=== PATIENT | female | born 1965 | race Caucasian/White ===

== ENCOUNTER 2017-08-20 14:25 | Outpatient (CLI) | payer BC | END 2017-08-20 14:26 | disposition home or self-care (01) | LOC: BICMAMMO 14:25 | PROVIDERS: ATTEND Family Medicine | DX: Z13.820 Encounter for screening for osteoporosis (principal) | CPT/HCPCS: 77080 ==

== ENCOUNTER 2018-07-14 12:11 | Outpatient (CLI) | payer BC ==
--- NOTE | 2018-07-14 13:04 | ULT ---
US Renal Bilateral STANDARD HISTORY: Acute renal failure COMPARISON: None. FINDINGS: The right kidney measures 10.3 cm in length and the left kidney measures 10.8 cm in length. No focal mass or hydronephrosis is seen on either side. Cortical echogenicity and thickness is normal. The bladder is unremarkable. IMPRESSION: Normal exam.
== END 2018-07-14 12:12 | disposition home or self-care (01) ==
LOC: BICULT 12:11
PROVIDERS: ATTEND Internal Medicine Nephrology
DX: N17.9 Acute kidney failure, unspecified (principal)
CPT/HCPCS: 76770

== ENCOUNTER 2019-07-11 15:30 | Outpatient (CLI) | payer BC | END 2019-07-11 15:31 | disposition home or self-care (01) | LOC: DTY/OP 15:30 | PROVIDERS: ATTEND Specialist | DX: Z01.818 Encounter for other preprocedural examination (principal); E66.01 Morbid (severe) obesity due to excess calories | CPT/HCPCS: 97802 ==

== ENCOUNTER 2019-08-18 11:30 | Inpatient (IN) | payer BC, OTHER ==
[2019-08-24] MEDS ORDERED: Ketorolac Tromethamine 30 MG/ML VIAL ONE (06:17)
[2019-08-24] MEDS ORDERED: Scopolamine 1.5 mg/72 hour Patch ONE (06:17)
[2019-08-24] MEDS ORDERED: Bupivacaine 0.25% HCL 30 ML VIAL ONE (06:42)
[2019-08-24] MEDS ORDERED: Lidocaine 1% w/Epinephrine 1:100K 20 ML VIAL ONE (06:42)
[2019-08-24] MEDS ORDERED: Fentanyl 100 MCG/2 ML VIAL ONE ×3 (06:59→09:11)
[2019-08-24] MEDS ORDERED: Midazolam HCl 2 mg/2 ml Vial ONE ×2 (06:59→07:17)
[2019-08-24] MEDS ORDERED: SUGAMMADEX SODIUM 200 MG/2 ML VIAL ONE ×2 (08:18→08:36)
[2019-08-24] MEDS ORDERED: Promethazine HCl 25 MG/ML VIAL IM PRN ×2 (08:59→10:37)
[2019-08-24] MEDS ORDERED: Ondansetron HCl/PF 4 MG/2 ML Vial IVP PRN (08:59)
[2019-08-24] MEDS ORDERED: Promethazine HCl 25 MG/ML VIAL SLOW IVP PRN (08:59)
[2019-08-24] MEDS ORDERED: Morphine 4 MG/ML VIAL SLOW IVP PRN (10:37)
[2019-08-24] MEDS ORDERED: diphenhydrAMINE 50 MG/ML VIAL IVP PRN (10:37)
[2019-08-24] MEDS ORDERED: Dextrose 50% Abboject 50 ML SYRINGE SLOW IVP PRN (10:37)
[2019-08-24] MEDS ORDERED: hydrALAZINE 20 MG/ML VIAL SLOW IVP PRN (10:37)
[2019-08-24] MEDS ORDERED: Pantoprazole 40 MG VIAL IVP SCH ×2 (10:37→11:00)
[2019-08-24] MEDS ORDERED: Dextrose 5% in Water 1,000 ML IV PRN (10:37)
[2019-08-24] MEDS ORDERED: Hydrocodone-Acetamin 15 ML UDCUP PO PRN (10:37)
[2019-08-24 11:44] VITALS: BMI 41.9
[2019-08-24] MEDS ORDERED: Ketorolac Tromethamine 30 MG/ML VIAL IVP SCH (12:00)
[2019-08-24] MEDS ORDERED: PROPOFOL 200 MG/20 ML VIAL ONE (13:16)
[2019-08-24] MEDS ORDERED: Lidocaine 1% PF 5 ML VIAL ONE (13:16)
[2019-08-24] MEDS ORDERED: Ondansetron PF 4 MG/2 ML Vial ONE (13:16)
[2019-08-24] MEDS ORDERED: Glycopyrrolate 0.2 MG/ML 5 ML SYRINGE ONE (13:16)
[2019-08-24] MEDS ORDERED: Rocuronium Bromide 10 MG/ML (10ML VIAL) ONE (13:16)
[2019-08-24] MEDS: D5 1/2 NS w/20 mEq KCL 1,000 ML IV SCH ×3 (13:44→23:05)
--- NOTE | 2019-08-24 17:00 | OP ---
DATE OF PROCEDURE: 08/24/2019 PREOPERATIVE DIAGNOSIS: Morbid obesity. POSTOPERATIVE DIAGNOSIS: Morbid obesity. PROCEDURE PERFORMED: Laparoscopic vertical sleeve gastrectomy using the ViSiGi device. ANESTHESIA: General endotracheal. INDICATIONS: The patient is a 54-year-old white female. She has undergone preoperative evaluation and education, presents at this time for sleeve gastrectomy. DESCRIPTION OF OPERATION: Informed consent was obtained. The patient was taken to the operating room where general endotracheal anesthesia was obtained with the patient in supine position. Abdomen was prepped with ChloraPrep and draped in sterile fashion. Local anesthetic was infiltrated and 5 mm supraumbilical incision was created through which Veress needle was passed to the peritoneal cavity and pneumoperitoneum established using carbon dioxide up to a pressure of 15 mmHg. A 5 mm trocar port was passed through this same incision. Laparoscopic camera was passed through this port. Under direct vision, 4 additional ports were placed including bilateral 5 mm subcostal ports, a 12 mm right paramedian port and a 15 mm left paramedian port. A 5 mm epigastric incision was created through which Nathansen retractor was passed into the abdominal cavity and used to retract the left lobe of the liver. The patient was placed into reverse Trendelenburg position. The ViSiGi device was advanced within the stomach and used to decompress this. The pylorus was identified and beginning 4 cm proximal to the pylorus, the omentum and vascular tissue along the greater curvature was divided using the LigaSure in an ascending fashion up to the angle of His. All posterior adhesions were mobilized. The short gastric vessels were carefully divided and then hemostasis was maintained using the LigaSure. Once this was completely mobilized, the ViSiGi was carefully positioned at the level of the pylorus and placed to suction, which was clearly defining the lesser curvature of the stomach. The gastrectomy was then performed using a series of fires of the [place] stapler using a green load followed by a gold load and a series of blue loads until completion of the gastrectomy. The ViSiGi along the lesser curvature was used as a size 36 bougie to guide in the gastric division. Care was taken to avoid narrowing the incisura or the gastroesophageal junction. The integrity of the staple line was then assessed by insufflating gas through the ViSiGi while irrigating along the staple line. There was no evidence of an air leak. There was no evidence of bleeding along the staple line. The resected stomach was then removed through the 15 mm port and the fascia was closed with 0 Vicryl suture using a GraNee needle. I then closed the 12 mm port also using the GraNee needle and 0 Vicryl suture. The Nathansen retractor was removed. All ports and instruments were removed under direct vision. All irrigant was aspirated. Pneumoperitoneum was carefully evacuated. 0.25% Marcaine with epinephrine was infiltrated into each port site. Skin edges approximated with 4-0 Monocryl subcuticular suture. Dermabond was placed externally. There were no complications. The patient tolerated the procedure well and was taken to recovery room in stable condition. FINDINGS: The patient had no significant intraabdominal abnormalities. There was no evidence of hiatal hernia. There was no fatty infiltration of her liver. The surgery was performed uneventfully with essentially no blood loss. There was a small area of bleeding from of the superior aspect of the spleen, that was treated briefly with Myron powder with complete cessation of bleeding. The patient tolerated the procedure well and was taken to recovery room in stable condition. Job ID: [id number]
[2019-08-24] MEDS: Morphine 2 MG/ML SYRINGE SLOW IVP PRN (20:35)
[2019-08-24] MEDS ORDERED: Bupropion 150 MG XL TAB PO SCH (21:00)
[2019-08-24] MEDS ORDERED: hydrOXYzine 25 MG TAB PO SCH ×2 (21:00)
[2019-08-24] MEDS ORDERED: Pravastatin Sodium 20 MG TAB PO SCH (21:00)
[2019-08-24] MEDS ORDERED: Simvastatin 5 MG TAB PO SCH (21:00)
[2019-08-24] MEDS ORDERED: Enoxaparin Sodium 40 MG/0.4 ML SYRINGE SC SCH (21:00)
[2019-08-25 05:23] LABS: #Lymphocytes 1.4 thou/uL (1.20-3.40); #Monocytes 0.4 thou/uL (0.11-0.59); #Neutrophils 6.3 thou/uL (1.40-6.50); %Basophils 0.2 % (0.0-1.0); %Eosinophils 0.5 % (0.0-10.0); %Monocytes 5.3 % (0.0-10.0); Hemoglobin 12.3 g/dL (12.0-16.0); Mean Corpuscular HGB CONC 33.1 g/dL (32.0-36.0); Mean Corpuscular Hemoglobin 31.8 pg (27.0-31.0); Mean Corpuscular Volume 96.1 fL (78.0-98.0); Mean Platelet Volume 6.8 fL (7.4-10.4); Platelet Count 222 thou/uL (130-400); RBC Distribution Width 11.9 % (11.5-14.5); Red Blood Cell (RBC) Count 3.85 mill/uL (4.20-5.40); White Blood Cell (WBC) Count 8.2 thou/uL (4.8-10.8)
[2019-08-25 05:47] LABS: Anion Gap 9 mmol/L (10-20); BUN (Urea Nitrogen) 7 mg/dL (9.8-20.1); Calc. Creatinine Clearance 128 mL/min (70-130); Calcium 8.5 mg/dL (7.8-10.44); Carbon Dioxide 27 mmol/L (22-29); Chloride 109 mmol/L (98-107); Estimated GFR-MDRD 76; Glucose 128 mg/dL (70-105); Potassium 4.2 mmol/L (3.5-5.1); Sodium 141 mmol/L (136-145)
[2019-08-25] MEDS: Ondansetron PF 4 MG/2 ML Vial IVP PRN ×2 (06:44→14:47)
[2019-08-25] MEDS: D5 1/2 NS w/20 mEq KCL 1,000 ML IV SCH (06:44)
[2019-08-25] MEDS: Morphine 2 MG/ML SYRINGE SLOW IVP PRN (07:57)
[2019-08-25] MEDS ORDERED: Pantoprazole 40 MG VIAL IVP SCH (09:00)
[2019-08-25 11:27] VITALS: BP 116/71; TEMP 98.1
--- NOTE | 2019-08-27 07:46 | PQF ---
[employer] Roll Form Operator Crystal Reports [employer] SYLIVA Mclain KG VASQUES MD [id number] SURG [id number] CLINICAL DOCUMENTATION CLARIFICATION FORM: POST DISCHARGE Addendum to original discharge summary date: ____ Late entry note date: __ Note - the small area of bleeding noted from the spleen was irrelevant and occurred during standard dissection. Minor bleeding happens during ALMOST EVERY OPERATION, because thats what happens when tissues are cut. The spleen was mentioned only because it can be hard to control bleeding from the spleen. This, however was easily controlled and the patient had no hemodynamic instability, no transfusion, and no significant decrease in hemoglobin the following day. DATE: 08/27/2019 ATTN: Kg Flores Please exercise your independent, professional judgment in responding to the clarification form. Clinical indicators are provided on the bottom of this form for your review Please check appropriate box(s): [ ] Bleeding is a complication of current vertical sleeve gastrectomy surgery [ x ] Bleeding is not a complication of current vertical sleeve gastrectomy surgery [ ] Other diagnosis [ ] Unable to determine In addition, please specify: Present on Admission (POA): [ ] Yes [ x ] No [ ] Unable to determine CLINICAL INDICATORS - SIGNS / SYMPTOMS / LABS There was a small area of bleeding from the superior aspect of the spleen that was treated briefly with Myron powder with complete cessation of bleeding - OP 6/4 by Kg Vasques MD [employer] Laparoscopic vertical sleeve gastrectomy - OP 6/4 by Kg Vasques MD Morbid obesity - OP 6/4 by Kg Vasques MD TREATMENT: Bleeding has been treated with Myron powder - OP 6/4 by Kg Vasques MD (This form is maintained as a part of the permanent medical record) [email or web address] All Rights Reserved [email or web address]
== END 2019-08-25 15:17 | disposition home or self-care (01) | DRG 621 ==
LOC: SURG A 08-24 06:01 → 3SE 08-24 09:38 → SURG A 08-24 10:18
PROVIDERS: ADMIT Specialist; ATTEND Specialist
PROC: 0DB64Z3 Excision of Stomach, Percutaneous Endoscopic Approach, Vertical (ICD-10-PCS; principal; 2019-08-24)
DX: E66.01 Morbid (severe) obesity due to excess calories (principal); K66.0 Peritoneal adhesions (postprocedural) (postinfection); Z68.41 Body mass index [BMI] 40.0-44.9, adult
CPT/HCPCS: 36415; 36416; 80048; 85025; 87635; 88307; 88312; 94760; C9113; J0694; J1650; J1885; J2001; J2250; J2270; J2405; J2550; J2704; J3010; J3480; S0020; U0003

== ENCOUNTER 2019-08-21 07:35 | Outpatient (CLI) | payer BC, OTHER ==
[2019-08-21 18:45] LABS: SARS-CoV-2 MS2 Positive; SARS-CoV-2 N Gene Negative; SARS-CoV-2 S Gene Negative; SARS-CoV-2 orf1ab Negative
== END 2019-08-21 07:36 | disposition home or self-care (01) ==
LOC: LABBT 07:35
PROVIDERS: ATTEND Specialist
DX: Z01.812 Encounter for preprocedural laboratory examination (principal); Z11.59 Encounter for screening for other viral diseases; E66.01 Morbid (severe) obesity due to excess calories
CPT/HCPCS: 87635; U0003